=== PATIENT | female | born 1950 | race Caucasian/White ===

== ENCOUNTER 2020-07-26 22:32 | Emergency (ER) | payer MEDICARE, BC ==
[2020-07-26] MEDS ORDERED: Ketorolac 30 MG/ML SDV IM ONE (23:00)
[2020-07-26] MEDS ORDERED: diphenhydrAMINE 50 MG/ML SDV IM ONE (23:01)
--- NOTE | 2020-07-26 23:07 | EDM.PDOC ---
ED HPI GENERAL MEDICAL PROBLEM - General Chief Complaint: Lower Extremity Injury/Pain Stated Complaint: ANKLE PAIN Time Seen by Provider: 07/26/20 22:50 Source of Information: Reports: Patient History Limitations: Reports: No Limitations - History of Present Illness INITIAL COMMENTS - FREE TEXT/NARRATIVE: 70 yo female was sitting near a hotel pool in a chair and had fairly abrupt onset of R posterior heel pain and some puffiness and redness of her toes. She denies injury. No hx of gout. Doesn't recall seeing any insects around her at the time. Denies itching. She took Aleve 1 tablet at the time and has had a slight reduction in her pain since then. No hx of diabetes. No hx of achilles tendonitis. Onset: Today, Sudden Onset Date: 07/26/20 Duration: Minutes: Location: Reports: Lower Extremity, Right Quality: Reports: Ache Severity: Moderate Improves with: Reports: Rest Worsens with: Reports: Other (touching back of heel) Context: Reports: Other (See HPI). Denies: Trauma Associated Symptoms: Reports: No Other Symptoms. Denies: Fever/Chills Treatments VEL[employer]ER: Reports: NSAIDS R lateral ankle Pain Score (Numeric/FACES): 4 - Related Data Allergies Allergy/AdvReac Type Severity Reaction Status Date / Time No Known Allergies Allergy Verified 04/11/15 16:03 Home Meds: Home Meds Clobetasol Propionate/Emoll [Clobetasol Emollient 0.05% Crm] 1 applic TOP BID 04/11/15 [History] Levothyroxine [Synthroid] 100 mcg PO ACBREAKFAST 04/11/15 [History] Past Medical History HEENT History: Reports: Impaired Vision Dermatologic History: Reports: Other (See Below) Other Dermatologic History: RASH TO LEFT LEG Review of Systems - Review of Systems Review Of Systems: See Below Constitutional: Reports: No Symptoms. Denies: Chills, Fever Eyes: Reports: No Symptoms Ears: Reports: No Symptoms Nose: Reports: No Symptoms Mouth/Throat: Reports: No Symptoms Respiratory: Reports: No Symptoms Cardiovascular: Reports: No Symptoms Musculoskeletal: Reports: Foot Pain (R posterior heel is tender) Skin: Reports: Erythema (of toes of the R foot). Denies: Pruritis Neurological: Reports: No Symptoms Psychiatric: Reports: No Symptoms ED EXAM, GENERAL - Physical Exam Exam: See Below Exam Limited By: No Limitations General Appearance: Alert, WD/WN, No Apparent Distress Respiratory/Chest: Lungs Clear, Normal Breath Sounds Cardiovascular: Regular Rate, Rhythm, No Edema Extremities: Redness (slight erythema of the R toes and distal forefoot. ). No: Non-Tender (area near attachment of the achilles tendon is quite tender. ) Neurological: Alert, Oriented, CN II-XII Intact, Normal Cognition, No Motor/Sensory Deficits Psychiatric: Normal Affect, Normal Mood Skin Exam: Warm, Dry, Intact, No Rash, Erythema (forefoot and toes of R foot just slightly reddened. ), Increased Warmth (Distal R foot is slightly warmer than the left foot. ). No: Wound/Incision Course - Vital Signs Last Recorded V/S: Last Vital Signs Temp 36.6 C 07/26/20 23:00 Pulse 65 07/26/20 23:00 Resp 18 07/26/20 23:00 BP 114/61 07/26/20 23:00 Pulse Ox 100 07/26/20 23:00 - Orders/Labs/Meds Meds: Medications Discontinued Medications Generic Name Dose Route Start Last Admin Trade Name Sriram PRN Reason Stop Dose Admin Diphenhydramine HCl 50 mg 07/26/20 23:01 07/26/20 23:25 Diphenhydramine 50 Mg/Ml Sdv IM 07/26/20 23:02 50 mg ONETIME ONE Administration Ketorolac Tromethamine 30 mg 07/26/20 23:00 07/26/20 23:25 Ketorolac 30 Mg/Ml Sdv IM 07/26/20 23:01 30 mg ONETIME ONE Administration - Re-Assessments/Exams Free Text/Narrative Re-Assessment/Exam: 07/26/20 23:54 Toes no longer red, pain behind heel is less. Departure - Departure Time of Disposition: 00:00 Disposition: Home, Self-Care 01 Condition: Good Clinical Impression: Retrocalcaneal bursitis Qualifiers: Laterality: right Qualified Code(s): M77.51 - Other enthesopathy of right foot and ankle - Discharge Information *PRESCRIPTION DRUG MONITORING PROGRAM REVIEWED*: Not Applicable *COPY OF PRESCRIPTION DRUG MONITORING REPORT IN PATIENT FUENTES: Not Applicable Forms: ED Department Discharge Additional Instructions: Ice the tender area behind your heel 3-4 times per day for 15 min. Limit your walking and wear open heeled foot wear for the next several days. Take Aleve 2 with breakfast and supper starting tomorrow morning. You may add acetaminophen up to 1000 mg every 6 hrs for added pain relief. Recheck with your provider later this week, call for an appt. Sepsis Event Note (ED) - Focused Exam Vital Signs: Vital Signs Temp Pulse Resp BP Pulse Ox 07/26/20 23:00 36.6 C 65 18 114/61 100
[2020-07-27 01:05] VITALS: BP 114/56; PULSE 60
== END 2020-07-27 00:18 | disposition home or self-care (01) ==
LOC: FB.ED 22:32
DX: M77.51 Other enthesopathy of right foot and ankle (principal)
CPT/HCPCS: 96372; 99283; J1200; J1885

== ENCOUNTER 2021-09-12 16:14 | Emergency (ER) | payer MEDICARE, BC ==
[2021-09-12] MEDS ORDERED: Sodium Chloride 0.9% 10 ML Syringe FLUSH PRN (16:16)
[2021-09-12] MEDS ORDERED: Ondansetron 4 MG/2 ML SDV IVPUSH ONE (16:16)
[2021-09-12] MEDS ORDERED: Acetaminophen 325 MG Tab PO ONE (16:25)
[2021-09-12 17:58] LABS: ESTIMATED GFR 61 mL/min (>60)
[2021-09-12 20:15] VITALS: BP 115/82; PULSE 68
== END 2021-09-12 19:01 | disposition home or self-care (01) ==
LOC: FB.ED 16:14
DX: R25.2 Cramp and spasm (principal); R19.5 Other fecal abnormalities; Z79.899 Other long term (current) drug therapy
CPT/HCPCS: 36415; 80048; 99284; A9270